=== PATIENT | female | born 1940 | race Caucasian/White ===

== ENCOUNTER → 2016-10-08 | Outpatient (CLI) | payer MEDICARE | LOC: US 09:30 | DX: R10.11 Right upper quadrant pain (principal); Z90.49 Acquired absence of other specified parts of digestive tract | CPT/HCPCS: 76705 ==

== ENCOUNTER 2020-08-13 20:21 | Emergency (ER) | payer MEDICARE ==
[2020-08-13 20:51] LABS: HEMOGLOBIN 13.5 gm/dl (12.3-15.3); RED BLOOD COUNT 4.55 M/UL (4.00-5.10); WHITE BLOOD COUNT 3.3 K/UL (4.5-11.0)
[2020-08-13 21:12] LABS: BUN/CREATININE RATIO 25 (0-10)
[2020-08-14] MEDS ORDERED: VENTOLIN HFA 66.7 GM INH (03:31)
[2020-08-14] MEDS ORDERED: DOXYCYCLINE MO100 MG PO (03:31)
== END 2020-08-14 05:45 | disposition home or self-care (01) ==
LOC: ER1 20:21
PROVIDERS: Physician Assistant
DX: U07.1 COVID-19 (principal); J12.82 Pneumonia due to coronavirus disease 2019; Z88.1 Allergy status to other antibiotic agents; Z88.5 Allergy status to narcotic agent; Z85.828 Personal history of other malignant neoplasm of skin; Z85.3 Personal history of malignant neoplasm of breast
CPT/HCPCS: 36600; 71045; 80053; 81001; 82550; 82553; 82803; 83874; 84484; 85025; 93005; 96374; 99285; J1100; J7030; Q9967; U0002

== ENCOUNTER → 2020-11-29 | Outpatient (CLI) | payer MEDICARE ==
[~2020-11-29] MED LIST: DOXYCYCLINE MO100 MG PO; VENTOLIN HFA 66.7 GM INH
== END ==
LOC: CT 09:39
DX: R07.9 Chest pain, unspecified (principal); R10.9 Unspecified abdominal pain; I70.90 Unspecified atherosclerosis; K57.30 Diverticulosis of large intestine without perforation or abscess without bleeding
CPT/HCPCS: 36415; 71250; 82565; 84520; Q9967

== ENCOUNTER → 2021-01-04 | Outpatient (CLI) | payer MEDICARE | LOC: RT 13:18 | DX: Z01.810 Encounter for preprocedural cardiovascular examination (principal); R00.1 Bradycardia, unspecified | CPT/HCPCS: 93005 ==

== ENCOUNTER 2022-04-09 13:37 | Emergency (ER) | payer MEDICARE ==
[~2022-04-09 13:37] MED LIST changes: +ADULT LOW DOSE81 MG PO; +ASPIR-TRIN325 MG PO; +ASPIRIN 325MG325 MG PO; +B COMPLEX1 EACH PO; +BUSPAR 10MG10 MG PO; +CENTRUM COMPLE1 EACH PO; +LEXAPRO20 MG PO; +LOW DOSE ASPIRI81 MG PO; +NAPROXEN500 MG PO; +POTASSIUM99 M3 PO; +VITAMIN D325 MCG PO
[2022-04-09 17:09] LABS: HEMOGLOBIN 14.1 gm/dl (12.3-15.3); RED BLOOD COUNT 4.88 M/UL (4.00-5.10); WHITE BLOOD COUNT 10.3 K/UL (4.5-11.0)
[2022-04-09 17:34] LABS: BUN/CREATININE RATIO 29 (0-10)
[2022-04-09] MEDS ORDERED: AMOX TR-K CLV1 EAC4 PO (21:01)
[2022-04-09] MEDS ORDERED: ZOFRAN ODT 4 MG4 MG PO (21:01)
[2022-04-09] MEDS ORDERED: BENTYL 20MG TAB20 MG PO (21:01)
== END 2022-04-09 21:55 | disposition home or self-care (01) ==
LOC: ER1 13:37
PROVIDERS: Physician Assistant
DX: K57.32 Diverticulitis of large intestine without perforation or abscess without bleeding (principal); N39.0 Urinary tract infection, site not specified; Z90.89 Acquired absence of other organs; Z90.710 Acquired absence of both cervix and uterus; Z90.49 Acquired absence of other specified parts of digestive tract; Z88.1 Allergy status to other antibiotic agents; Z88.5 Allergy status to narcotic agent
CPT/HCPCS: 80053; 81001; 83690; 85025; 87086; 96374; 99284; J2543; Q9967